=== PATIENT | female | born 1945 | race Caucasian/White ===

== ENCOUNTER → 2018-04-12 | Outpatient (CLI) | payer MEDICARE, OTHER ==
[~2018-04-12] MED LIST: ALBU.083IS IH; ALBU90OI INH; ALBU90OI6 INH; ALBU90OI61 INH; ALBUTEROL IH; ASPI81CH PO; AZIT250 PO; BENADRYL25 MG PO; CALCAVITD PO; CEFU250 PO; CONESTTC VAG; DOCU100 PO; FISH1000 PO; FLUT.05NI INH; FLUT110OIA IH; FLUT110OIA INH; FLUT220OIA IH; FLUT44OIA INH; Ferrous Glucon325 M2; HYDCHL25 PO; HYDR1TAB94 PO; IRON; LEVFLO500 PO; LISHYD2025 PO; LORA1 PO; LOSA50 PO; LOSHYD100 PO; MECL25 PO; MONT10T PO; NIFE60ER PO; OMEP20ER PO; ONDA4ODT MM; ONDA8 PO; OXYACE5T PO; PANT40 PO; PHENA200 PO; POTCHL20ER PO; PRAV20 PO; PRED20 PO; PROM25 PO; Percocet 5-3251 EACH PO; SIMV40 PO; SULTRIDS PO; [UNRECOGNIZED DRUG - OTHER] IH
== END | disposition home or self-care (01) ==
LOC: LAB SHORT 09:15 → LAB 09:15
DX: N39.0 Urinary tract infection, site not specified (principal)
CPT/HCPCS: 87077; 87086; 87186

== ENCOUNTER 2019-04-02 11:53 | Day surgery (SDC) | payer MEDICARE, OTHER ==
[~2019-04-02] VITALS: Ht 154.9 cm; Wt 87.1 kg
[~2019-04-02 11:53] MED LIST changes: +ACET500 PO; +CRANBERRY CAP PO; -FLUT.05NI INH; -FLUT110OIA INH; +Flonase 0.05% N16 GM; +Flovent 110 MCG12 GM INH; +GLUCOSAMINE PO; +IBUP800 PO; +KRILL OIL500 MG PO; +LOSARTAN-HCTZ1 EAC1 PO; -LOSHYD100 PO; +MANNOSE50 GM PO; +MSM PO; +Robaxin500 MG PO; +VITAMIN D31000 UNI1 PO; +YUVAFEM10 MCG VAG
--- NOTE | 2019-04-02 12:02 | NUR ---
History, Chart, Medications and Allergies reviewed before start of procedure. Patient confirms NPO status and agrees with scheduled surgery.
--- NOTE | 2019-04-02 12:15 | NUR ---
PATIENT DENIES ALLERGY TO ACETAMINOPHEN AND REQUESTS IT BE REMOVED FROM HER ALLERGY LIST.
--- NOTE | 2019-04-02 12:29 | NUR ---
DR MOREAU NOTIFIED OF BP 212/86. NO NEW ORDERS.
--- NOTE | 2019-04-02 12:43 | NUR ---
PATIENT DENIES ALLERGY TO PERCOCET AND REQUESTS FOR IT TO BE REMOVED FROM HER ALLERGY LIST.
--- NOTE | 2019-04-02 12:53 | NUR ---
NOZIN NASAL LAUNDRY TECHNICIAN X3 AMPULES TO NARES BILAT.
--- NOTE | 2019-04-02 17:40 | NUR ---
PT ARRIVED TO UNIT VIA BED. LEFT KNEE HAS BULKY SURGICAL DRESSING. PATIENT CURRENTLY UNABLE TO MOVE TOES AND NOT HAVING SENSATION IN TOES. SENSATION CAN BE FELT ABOVE MID THIGH PER PATIENT REPORT. NO PAIN AT THIS TIME. COMPLAINING OF NAUSEA, MEDICATED PER EMAR. HAVING A FEW ICE CHIPS. FAMILY IN ROOM AT BEDSIDE. PATIENT ALERT AND ORIENTED X 4
[2019-04-03 04:04] LABS: BASOPHILS ABSOLUTE AUTO 0.06 K/mm3 (0.00-0.23); BASOPHILS PERCENT AUTO 1 % (0-2); EOSINOPHILS ABSOLUTE AUTO 0.09 K/mm3 (0.00-0.68); EOSINOPHILS PERCENT AUTO 1 % (0-6); Hemoglobin 10.4 g/dL (11.5-16.0); IMMATURE GRAN ABSOLUTE AUTO 0.04 K/mm3 (0.00-0.10); IMMATURE GRAN PERCENT AUTO 0 % (0-1); LYMPHOCYTES ABSOLUTE AUTO 1.76 K/mm3 (0.84-5.20); LYMPHOCYTES PERCENT AUTO 15 % (21-46); MONOCYTES ABSOLUTE AUTO 0.97 K/mm3 (0.16-1.47); MONOCYTES PERCENT AUTO 8 % (4-13); Mean Corpuscular HGB 27.6 pg (26.0-34.0); Mean Corpuscular HGB Conc 31.5 g/dL (31.5-36.5); Mean Corpuscular Volume 88 fL (80-100); Mean Platelet Volume 9.2 fL (9.1-12.4); NEUTROPHILS PERCENT AUTO 76 % (41-73); Platelet Count 307 K/mm3 (150-400); RDW Coefficient Variation 14.7 % (11.7-14.2); Red Blood Cell Count 3.77 M/mm3 (3.80-5.20); White Blood Cell Count 11.92 K/mm3 (4.00-11.30)
[2019-04-03 04:22] LABS: Anion Gap 5 mmol/L (6-16); Blood Urea Nitrogen 8 mg/dL (8-24); CO2, Blood 31 mmol/L (21-32); Calcium, Blood 8.2 mg/dL (8.5-10.1); Chloride, Blood 105 mmol/L (98-108); Creatinine, Blood 0.73 mg/dL (0.40-1.00); Glomerular Filtration Rate >60 (60-); Glucose, Blood 101 mg/dL (70-99); Magnesium, Blood 1.9 mg/dL (1.6-2.4); Potassium, Blood 3.3 mmol/L (3.5-5.5); Sodium, Blood 141 mmol/L (136-145)
--- NOTE | 2019-04-03 04:40 | NUR ---
SHIFT SUMMARY: PT POD #1 FOR LEFT TOTAL KNEE. MARTY WRAP CDI WITH POLAR PACK IN PLACE. PAIN MANAGED WITH SCHED TORADOL, TYLENOL AND 10MG OXY PER EMAR. 1 ASSIST TO BATHROOM W/FWW+GB. VOIDING WELL. GIVEN PHENERGAN IN BEGINNING OF SHIFT FOR C/O OF NAUSEA. NO EMESIS. DRINKING ADEQUATE AMOUNT OF FLUIDS. SALINE LOCKED.
[2019-04-03] MEDS ORDERED: ASPI325 PO (15:45)
[2019-04-03] MEDS ORDERED: OXYC5 PO (15:45)
[2019-04-03] MEDS ORDERED: METO10 PO (15:46)
--- NOTE | 2019-04-03 16:32 | NUR ---
DISCHARGE SUMMARY PT A&OX4, VSS, LEFT FLOOR VIA WC WITH RN TO GO HOME WITH FAMILY, WITH ALL PERSONAL POSSESSIONS INCLUDING DISCHARGE PACKET AND 2 AQUACEL DRESSINGS. DC INSTRUCTIONS PROVIDED. PT REP UNDERSTANDING THOSE INSTRUCTIONS INCLUDING CHANGE DRESSING ON SUNDAYS UNTIL FU WITH SURGEON IN 2 WKS, OUTPT PT, USE FWW WITH ALL AMB. IV DC'D.
--- NOTE | 2019-04-05 08:23 | NUR ---
04/05/19 0823 Rosio Hawkins VERIFICATIONS: EDIT CHART.
== END 2019-04-03 16:02 | disposition home or self-care (01) ==
LOC: ORSCMMR 11:53 → ORD 14:30 → ORSCMMR 14:30 → SURS 17:37 → ORSCMMR 04-03 16:02
PROVIDERS: Orthopaedic Surgery
PROC: 0SRD0J9 Replacement of Left Knee Joint with Synthetic Substitute, Cemented, Open Approach (ICD-10-PCS; principal; 2019-04-03)
DX: M17.12 Unilateral primary osteoarthritis, left knee (principal); I10 Essential (primary) hypertension; J45.909 Unspecified asthma, uncomplicated; Z79.899 Other long term (current) drug therapy; E78.5 Hyperlipidemia, unspecified; K21.9 Gastro-esophageal reflux disease without esophagitis
CPT/HCPCS: 36415; 73560-LT; 80048; 83735; 85025; 86850; 86900; 86901; 88300; 94640; 94760; 97110; 97116; 97162; 97530; C1713; C1776; J0171; J0690; J0735; J1885; J2250; J2405; J2550; J2704; J2765; J2795; J3010; J7120

== ENCOUNTER → 2019-04-13 | Outpatient (CLI) | payer MEDICARE, OTHER ==
[~2019-04-13] MED LIST changes: +ASPI325 PO; +METO10 PO; +OXYC5 PO
== END | disposition home or self-care (01) ==
LOC: LAB 11:40 → LAB SHORT 11:40
DX: N39.0 Urinary tract infection, site not specified (principal)
CPT/HCPCS: 87077; 87086; 87186

== ENCOUNTER → 2019-12-12 | Outpatient (CLI) | payer MEDICARE, OTHER | LOC: LAB 13:29 → LAB SHORT 13:29 | DX: D48.5 Neoplasm of uncertain behavior of skin (principal) | CPT/HCPCS: 88341; 88342 ==

== ENCOUNTER → 2020-06-02 | Outpatient (CLI) | payer MEDICARE, OTHER | END | disposition home or self-care (01) | LOC: LAB SHORT 17:07 → LAB 17:07 | DX: N39.0 Urinary tract infection, site not specified (principal) | CPT/HCPCS: 87077; 87086; 87186 ==

== ENCOUNTER 2020-08-06 10:54 | Emergency (ER) | payer MEDICARE, OTHER ==
[~2020-08-06] VITALS: Ht 154.9 cm; Wt 88.5 kg
[2020-08-06] MEDS ORDERED: Naproxen375 MG PO (14:07)
[2020-08-06] MEDS ORDERED: LOSARTAN POTAS100 MG PO (14:09)
== END 2020-08-06 16:04 | disposition home or self-care (01) ==
LOC: ER 10:54
DX: M25.561 Pain in right knee (principal); I10 Essential (primary) hypertension; E78.5 Hyperlipidemia, unspecified; M79.604 Pain in right leg; J45.909 Unspecified asthma, uncomplicated; Z88.5 Allergy status to narcotic agent; Z88.1 Allergy status to other antibiotic agents; Z88.8 Allergy status to other drugs, medicaments and biological substances; Z79.899 Other long term (current) drug therapy
CPT/HCPCS: 73564; 93971; 99284-25; A9270

== ENCOUNTER → 2020-11-23 | Outpatient (CLI) | payer MEDICARE, OTHER ==
[~2020-11-23] MED LIST changes: +LOSARTAN POTAS100 MG PO; +Naproxen375 MG PO
== END | disposition home or self-care (01) ==
LOC: LAB SHORT 11:00 → LAB 11:00
DX: N39.0 Urinary tract infection, site not specified (principal)
CPT/HCPCS: 87086

== ENCOUNTER → 2022-05-30 | Outpatient (CLI) | payer MEDICARE | LOC: LAB 15:20 → LAB SHORT 15:20 | DX: N39.0 Urinary tract infection, site not specified (principal) | CPT/HCPCS: 87077; 87086; 87186 ==

== ENCOUNTER → 2022-06-21 | Outpatient (CLI) | payer MEDICARE | LOC: LAB SHORT 12:00 | DX: N39.0 Urinary tract infection, site not specified (principal) | CPT/HCPCS: 87077; 87086; 87186 ==

== ENCOUNTER → 2022-07-04 | Outpatient (CLI) | payer MEDICARE, OTHER | END | disposition home or self-care (01) | LOC: LAB SHORT 16:36 | DX: N39.0 Urinary tract infection, site not specified (principal) | CPT/HCPCS: 87077; 87086; 87186 ==

== ENCOUNTER 2022-09-12 18:37 | Emergency (ER) | payer MEDICARE, OTHER ==
[~2022-09-12] VITALS: Ht 154.9 cm; Wt 86.2 kg
== END 2022-09-12 22:19 | disposition home or self-care (01) ==
LOC: ER 18:37
DX: S09.90XA Unspecified injury of head, initial encounter (principal); I10 Essential (primary) hypertension; E78.5 Hyperlipidemia, unspecified; Z88.5 Allergy status to narcotic agent; Z88.8 Allergy status to other drugs, medicaments and biological substances; Z79.899 Other long term (current) drug therapy; W19.XXXA Unspecified fall, initial encounter
CPT/HCPCS: 12001; 70450; 90471; 90714; 99283-25

== ENCOUNTER → 2024-03-16 | Outpatient (CLI) | payer MEDICARE, OTHER ==
[2024-03-16 10:38] LABS: BASOPHILS ABSOLUTE AUTO 0.08 K/mm3 (0.00-0.23); BASOPHILS PERCENT AUTO 1 % (0-2); EOSINOPHILS ABSOLUTE AUTO 0.38 K/mm3 (0.00-0.68); EOSINOPHILS PERCENT AUTO 4 % (0-6); Hemoglobin 12.2 g/dL (11.5-16.0); IMMATURE GRAN ABSOLUTE AUTO 0.03 K/mm3 (0.00-0.10); IMMATURE GRAN PERCENT AUTO 0 % (0-1); LYMPHOCYTES ABSOLUTE AUTO 1.64 K/mm3 (0.84-5.20); LYMPHOCYTES PERCENT AUTO 19 % (21-46); MONOCYTES ABSOLUTE AUTO 0.69 K/mm3 (0.16-1.47); MONOCYTES PERCENT AUTO 8 % (4-13); Mean Corpuscular HGB 27.1 pg (26.0-34.0); Mean Corpuscular HGB Conc 32.1 g/dL (31.5-36.5); Mean Corpuscular Volume 84 fL (80-100); Mean Platelet Volume 9.9 fL (9.1-12.4); NEUTROPHILS ABSOLUTE AUTO 5.85 K/mm3 (1.96-9.15); NEUTROPHILS PERCENT AUTO 68 % (41-73); Platelet Count 340 K/mm3 (150-400); RDW Coefficient Variation 14.7 % (11.7-14.2); RDW Standard Deviation 44.9 fL (35.1-46.3); White Blood Cell Count 8.67 K/mm3 (4.00-11.30)
[2024-03-16 10:59] LABS: Albumin, Blood 3.4 g/dL (3.4-5.0); Bilirubin, Total 0.4 mg/dL (0.1-1.0); Bun/Creatinine Ratio 9.8 (12.0-20.0); Calcium, Blood 9.3 mg/dL (8.5-10.1); Creatinine, Blood 0.71 mg/dL (0.40-1.00); Globulin, Blood 3.5 g/dL (2.2-4.0); Potassium, Blood 3.9 mmol/L (3.5-5.5); Total Protein, Blood 6.9 g/dL (6.4-8.2)
== END ==
LOC: LAB 10:00 → LAB SHORT 10:00
PROVIDERS: Physician Assistant
DX: R10.9 Unspecified abdominal pain (principal)
CPT/HCPCS: 80053; 83690; 85025

== ENCOUNTER 2025-04-14 03:02 | Emergency (ER) | payer MEDICARE, OTHER ==
[~2025-04-14] VITALS: Ht 154.9 cm; Wt 95.2 kg
[2025-04-14 03:21] LABS: BASOPHILS ABSOLUTE AUTO 0.07 K/mm3 (0.00-0.23); BASOPHILS PERCENT AUTO 1 % (0-2); EOSINOPHILS ABSOLUTE AUTO 0.28 K/mm3 (0.00-0.68); EOSINOPHILS PERCENT AUTO 3 % (0-6); Hematocrit 33.3 % (33.0-51.0); Hemoglobin 10.7 g/dL (11.5-16.0); IMMATURE GRAN ABSOLUTE AUTO 0.03 K/mm3 (0.00-0.10); IMMATURE GRAN PERCENT AUTO 0 % (0-1); LYMPHOCYTES ABSOLUTE AUTO 1.72 K/mm3 (0.84-5.20); LYMPHOCYTES PERCENT AUTO 18 % (21-46); MONOCYTES ABSOLUTE AUTO 0.66 K/mm3 (0.16-1.47); MONOCYTES PERCENT AUTO 7 % (4-13); Mean Corpuscular HGB Conc 32.1 g/dL (31.5-36.5); Mean Corpuscular Volume 80 fL (80-100); NEUTROPHILS ABSOLUTE AUTO 6.82 K/mm3 (1.96-9.15); NEUTROPHILS PERCENT AUTO 71 % (41-73); NRBC ABSOLUTE 0.00 K/mm3 (0.00-0.02); NRBC Auto 0.0 /100 WBC (0.0-0.2); Platelet Count 334 K/mm3 (150-400); RDW Coefficient Variation 14.6 % (11.7-14.2); RDW Standard Deviation 42.8 fL (35.1-46.3)
[2025-04-14 03:46] LABS: Alanine Aminotransfer (ALT/SGP 18.0 U/L (12-78); Albumin, Blood 3.5 g/dL (3.4-5.0); Albumin/Globulin Ratio 1.0 (0.8-1.8); Anion Gap 8.0 mmol/L (3-11); Aspartate Aminotrans (AST/SGOT 15.0 U/L (12-37); Bilirubin, Total 0.3 mg/dL (0.1-1.0); Blood Urea Nitrogen 8.0 mg/dL (8-24); CO2, Blood 26.0 mmol/L (21-32); Calcium, Blood 9.2 mg/dL (8.5-10.1); Chloride, Blood 106.0 mmol/L (98-108); Creatinine, Blood 0.67 mg/dL (0.40-1.00); Globulin, Blood 3.4 g/dL (2.2-4.0); Glucose, Blood 132.0 mg/dL (70-99); Magnesium, Blood 2.1 mg/dL (1.6-2.4); Potassium, Blood 3.7 mmol/L (3.5-5.5); Sodium, Blood 136.0 mmol/L (136-145); Total Protein, Blood 6.9 g/dL (6.4-8.2)
[2025-04-14 04:45] VITALS: BP 163/69
== END 2025-04-14 04:59 | disposition home or self-care (01) ==
LOC: ER 03:02
PROVIDERS: Emergency Medicine
DX: R00.2 Palpitations (principal); J45.909 Unspecified asthma, uncomplicated; I10 Essential (primary) hypertension; E78.5 Hyperlipidemia, unspecified; Z88.1 Allergy status to other antibiotic agents; Z88.5 Allergy status to narcotic agent; Z88.8 Allergy status to other drugs, medicaments and biological substances; Z79.899 Other long term (current) drug therapy
CPT/HCPCS: 71045; 80053; 83735; 83880; 84484; 85025; 93005; 93010; 99285-25; A9270